=== PATIENT | female | born 1975 | race Caucasian/White ===

== ENCOUNTER 2016-07-30 12:32 | Outpatient (CLI) | payer BC, MEDICAID | END 2016-07-30 23:59 | DX: Z00.00 Encounter for general adult medical examination without abnormal findings (principal); E78.5 Hyperlipidemia, unspecified; K92.1 Melena ==

== ENCOUNTER 2019-12-01 16:17 | Outpatient (CLI) | payer SELFPAY ==
[2019-12-01 16:44] LABS: BASOPHILS # (AUTO) 0.1 10^3/uL (0.0-0.1); BASOPHILS % (AUTO) 0.5 %; EOSINOPHILS # (AUTO) 0.3 10^3/uL (0.0-0.7); EOSINOPHILS % (AUTO) 3.3 %; HGB - HEMOGLOBIN 14.7 g/dL (12.0-16.0); LYMPHOCYTES % (AUTO) 21.5 %; MEAN CORPUSCULAR HEMOGLOBIN 26.5 pg (27.0-31.0); MEAN CORPUSCULAR HGB CONC 31.8 g/dL (32.0-36.0); MEAN CORPUSCULAR VOLUME 83.4 fL (81.0-99.0); MEAN PLATELET VOLUME 10.1 fL (7.9-10.8); MONOCYTES # (AUTO) 0.7 10^3/uL (0.0-1.0); NEUTROPHILS # (AUTO) 6.4 10^3/uL (1.5-6.6); NEUTROPHILS % (AUTO) 67.3 %; PLT - PLATELET COUNT 238 10^3/uL (130-450); RED BLOOD COUNT 5.54 10^6/uL (4.20-5.40); RED CELL DISTRIBUTION WIDTH 15.6 % (12.0-15.0); WHITE BLOOD COUNT 9.5 x10^3/uL (4.8-10.8)
[2019-12-01 16:59] LABS: ALBUMIN 4.2 g/dL (3.2-5.5); ALBUMIN/GLOBULIN RATIO 0.9 (1.0-2.2); ALKALINE PHOSPHATASE 80 IU/L (42-121); ALT ALANINE AMINOTRANSFERASE 92 IU/L (10-60); AST ASPARTATE AMINOTRANSFERASE 83 IU/L (10-42); BILIRUBIN,TOTAL 0.8 mg/dL (0.2-1.0); BUN - BLOOD UREA NITROGEN 11 mg/dL (6-20); CARBON DIOXIDE - CO2 26 mmol/L (21-32); CHLORIDE 102 mmol/L (101-111); CHOL/HDL RATIO 3.1 (<4.4); CHOLESTEROL 206 mg/dL; CREATININE 0.7 mg/dL (0.4-1.0); GLUCOSE 90 mg/dL (70-100); HDL CHOLESTEROL 66 mg/dL; LDL CHOLESTEROL,CALCULATED 126 mg/dL; LDL/HDL RATIO 1.9 (<4.4); SODIUM 138 mmol/L (135-145); TOTAL PROTEIN 8.9 g/dL (6.7-8.2); VLDL CHOLESTEROL 14 mg/dL
--- NOTE | 2019-12-01 17:12 | XRAY Report ---
PROCEDURE: Chest 2 View X-Ray INDICATIONS: HYPERTENSION TECHNIQUE: 2 view(s) of the chest. COMPARISON: None. FINDINGS: Surgical changes and devices: None. Lungs and pleura: No pleural effusions or pneumothorax. Lungs are clear. Mediastinum: Mediastinal contours are normal. Heart size is normal. Bones and chest wall: No suspicious bony abnormalities. Soft tissues appear unremarkable. IMPRESSION: No acute cardiopulmonary disease process. Reviewed by: Jasmina Corbin MD, PhD on 12/01/2019 5:10 PM PDT Approved by: Jasmina Corbin MD, PhD on 12/01/2019 5:10 PM PDT Station ID: [id number]
== END 2019-12-01 16:18 | disposition home or self-care (01) ==
LOC: LAB 16:17 → DI 16:18
PROVIDERS: ATTEND Family Medicine
DX: I10 Essential (primary) hypertension (principal)
CPT/HCPCS: 36415; 71046; 80053; 80061; 83721; 84443; 85025

== ENCOUNTER 2020-09-02 08:00 | Outpatient (CLI) | payer OTHER ==
--- NOTE | 2020-09-02 11:17 | XRAY Report ---
PROCEDURE: Lumbar Spine 2 View INDICATIONS: LOW BACK PX TECHNIQUE: 2 views of the lumbar spine were acquired. COMPARISON: None. FINDINGS: Bones: 5 [id number] vertebrae are present. There is normal bony alignment. No vertebral body compression fractures. No suspicious bony lesions. Soft tissues: Overlying bowel gas pattern is normal. No suspicious soft tissue calcifications. IMPRESSION: There is a slight degree of degenerative disc height reduction at L3-4 and L4-5 and L5-S 1. Facet osteoarthritis is minimal at L3-4 and L4-5 and mild at L5-S1. No compression fracture seen. No subluxation present. Reviewed by: Mike Lezama MD on 09/02/2020 11:16 AM PDT Approved by: Mike Lezama MD on 09/02/2020 11:16 AM PDT Station ID: [id number]
--- NOTE | 2020-09-02 11:18 | XRAY Report ---
PROCEDURE: Hip w/Pelvis 1V LT INDICATIONS: L HIP PX TECHNIQUE: AP pelvis with lateral view(s) of the left hip(s). COMPARISON: None. FINDINGS: Bones: No fractures or dislocations. Pelvic ring appears intact. No suspicious bony lesions. Soft tissues: The visualized bowel gas pattern is normal. No suspicious soft tissue calcifications. IMPRESSION: There is a slight degree of degenerative osteoarthritis at each hip, no trauma found. So urce of asymmetric left-sided pain is not identified. Reviewed by: Mike Lezama MD on 09/02/2020 11:17 AM PDT Approved by: Mike Lezama MD on 09/02/2020 11:17 AM PDT Station ID: [id number]
== END 2020-09-02 23:59 | disposition home or self-care (01) ==
LOC: DI.N 08:00
PROVIDERS: ATTEND Family Medicine
DX: M16.0 Bilateral primary osteoarthritis of hip (principal); M47.816 Spondylosis without myelopathy or radiculopathy, lumbar region; M47.817 Spondylosis without myelopathy or radiculopathy, lumbosacral region; M51.36 Other intervertebral disc degeneration, lumbar region; M51.37 Other intervertebral disc degeneration, lumbosacral region

== ENCOUNTER 2021-08-06 16:46 | Outpatient (CLI) | payer OTHER ==
--- NOTE | 2021-08-07 10:57 | XRAY Report ---
PROCEDURE: Lumbar Spine 2 View INDICATIONS: LOW BACK PX TECHNIQUE: 2 views of the lumbar spine were acquired. COMPARISON: None. FINDINGS: Bones: 5 [id number] vertebrae are present. There is normal bony alignment. Mild disc height lo ss L4-5. No vertebral body compression fractures. No suspicious bony lesions. Soft tissues: Overlying bowel gas pattern is normal. No suspicious soft tissue calcifications. IMPRESSION: Minor degenerative change of the lumbar spine. Reviewed by: Kim Bonilla MD on 08/07/2021 10:56 AM PDT Approved by: Kim Bonilla MD on 08/07/2021 10:56 AM PDT Station ID: [id number]
--- NOTE | 2021-08-07 10:57 | XRAY Report ---
PROCEDURE: Cervical Spine 2 View INDICATIONS: NECK PX TECHNIQUE: 3 view(s) of the cervical spine were acquired. COMPARISON: None. FINDINGS: Bones: No fractures or dislocations to the T1 level. There is straightening of the normal cervical lordosis. Minor disc and endplate degeneration anteriorly in the mid cervical spine. The lateral mass es of C1 appear intact on the odontoid view. No suspicious bony lesions. Soft tissues: No prevertebral soft tissue swelling. IMPRESSION: 1. Minor degenerative changes of the cervical spine. Reviewed by: Kim Bonilla MD on 08/07/2021 10:55 AM PDT Approved by: Kim Bonilla MD on 08/07/2021 10:55 AM PDT Station ID: [id number]
--- NOTE | 2021-08-07 10:58 | XRAY Report ---
PROCEDURE: Thoracic Spine 2 View INDICATIONS: THORACIC BACK PX TECHNIQUE: 2 views of the thoracic spine were acquired. COMPARISON: None. FINDINGS: Bones: No fractures or dislocations. No suspicious bony lesions. 12 pairs of ribs are noted, and a ppear intact where visualized. Soft tissues: No paravertebral stripe thickening. IMPRESSION: Normal thoracic spine. Reviewed by: Kim Bonilla MD on 08/07/2021 10:56 AM PDT Approved by: Kim Bonilla MD on 08/07/2021 10:56 AM PDT Station ID: [id number]
== END 2021-08-06 16:47 | disposition home or self-care (01) ==
LOC: DI.N 16:46
PROVIDERS: ATTEND Nurse Practitioner
DX: M51.36 Other intervertebral disc degeneration, lumbar region (principal); M50.30 Other cervical disc degeneration, unspecified cervical region; G90.09 Other idiopathic peripheral autonomic neuropathy; R74.8 Abnormal levels of other serum enzymes; M25.552 Pain in left hip; Z72.89 Other problems related to lifestyle
CPT/HCPCS: 36415; 80053; 82607; 82977; 84443; 84550; 85027; 85651; 86038; 86140; 86200; 86225; 86430

== ENCOUNTER 2021-08-06 16:51 | Outpatient (CLI) | payer OTHER ==
[2021-08-06 21:31] LABS: HCT - HEMATOCRIT 44.5 % (37.0-47.0); MEAN CORPUSCULAR HEMOGLOBIN 25.8 pg (27.0-31.0); MEAN CORPUSCULAR HGB CONC 31.5 g/dL (32.0-36.0); MEAN PLATELET VOLUME 10.3 fL (7.9-10.8); RED BLOOD COUNT 5.43 10^6/uL (4.20-5.40); RED CELL DISTRIBUTION WIDTH 15.6 % (12.0-15.0); WHITE BLOOD COUNT 11.2 x10^3/uL (4.8-10.8)
[2021-08-06 21:52] LABS: ALBUMIN 4.4 g/dL (3.2-5.5); BILIRUBIN,TOTAL 0.7 mg/dL (0.2-1.0); CALCIUM 9.5 mg/dL (8.5-10.3); CREATININE 0.7 mg/dL (0.4-1.0); CRP - C-REACTIVE PROTEIN 4.8 mg/dL (0-1.0); POTASSIUM 3.9 mmol/L (3.5-5.0); TOTAL PROTEIN 8.8 g/dL (6.7-8.2); URIC ACID 3.9 mg/dL (2.6-7.2)
[2021-08-06 21:54] LABS: RHEUMATOID FACTOR NEGATIVE (Negative)
[2021-08-06 22:03] LABS: THYROID STIMULATING HORMONE 1.14 uIU/mL (0.34-5.60)
== END 2021-08-06 16:52 | disposition home or self-care (01) ==
LOC: LAB.N 16:51
PROVIDERS: ATTEND Nurse Practitioner
DX: G90.09 Other idiopathic peripheral autonomic neuropathy (principal); R74.8 Abnormal levels of other serum enzymes; M25.552 Pain in left hip; M54.9 Dorsalgia, unspecified; Z72.89 Other problems related to lifestyle
CPT/HCPCS: 36415; 80053; 82607; 82977; 84443; 84550; 85027; 85651; 86038; 86140; 86200; 86225; 86430

== ENCOUNTER 2021-09-04 16:07 | Outpatient (CLI) | payer OTHER ==
[2021-09-04 17:56] LABS: CHOL/HDL RATIO 4.8 (<4.4); CHOLESTEROL 198 mg/dL; CRP - C-REACTIVE PROTEIN 6.7 mg/dL (0-1.0); HDL CHOLESTEROL 41 mg/dL; LDL CHOLESTEROL,CALCULATED 142 mg/dL; LDL/HDL RATIO 3.5 (<4.4); TRIGLYCERIDES 76 mg/dL; VLDL CHOLESTEROL 15 mg/dL
== END 2021-09-04 16:08 | disposition home or self-care (01) ==
LOC: LAB.N 16:07
PROVIDERS: ATTEND Nurse Practitioner
DX: E78.5 Hyperlipidemia, unspecified (principal); R79.82 Elevated C-reactive protein (CRP)
CPT/HCPCS: 36415; 80061; 83721; 85651; 86140

== ENCOUNTER 2023-07-24 17:52 | Emergency (ER) | payer OTHER ==
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
[2023-07-24] MEDS: KETOROLAC 30 MG/ML VIAL IVP STA (20:16)
[2023-07-24] MEDS ORDERED: iohexoL-300 100 ML VIAL ONE (20:33)
[2023-07-24] MEDS: iohexoL-300 100 ML VIAL IVP ONE (21:26)
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
[2023-07-24] MEDS: CYCLOBENZAPRINE 10 MG Prepack 2 PO PRN (22:48)
[2023-07-24] MEDS: HYDROcod/ACET 5/325 Prepack 4 PO STA (22:48)
[2023-07-24 23:09] VITALS: BP 160/81; O2SAT 99
--- NOTE | 2023-07-26 15:03 | ED Physician Documentation ---
ED Addendum - Addendum Addendum: Kacie called [facility] emergency department to let us know that for some reason patient's prescription of Flexeril and [place] was not received from her ER visit on Wednesday. I have reviewed the chart and believe that this prescription is warranted and have resubmitted prescription to Kacie in [place]. 07/26/23 15:02
== END 2023-07-24 23:12 | disposition home or self-care (01) ==
LOC: ED 17:52
DX: S30.1XXA Contusion of abdominal wall, initial encounter (principal); S20.219A Contusion of unspecified front wall of thorax, initial encounter; V43.52XA Car driver injured in collision with other type car in traffic accident, initial encounter; Y92.488 Other paved roadways as the place of occurrence of the external cause; I10 Essential (primary) hypertension
CPT/HCPCS: 71260; 72125; 74177; 96374; 99284; Q9967